=== PATIENT | male | born 1970 | race Caucasian/White ===

== ENCOUNTER 2021-01-03 10:11 | Emergency (ER) | payer MEDICAID, OTHER ==
[~2021-01-03] VITALS: Ht 175.3 cm; Wt 97.1 kg
[2021-01-03 10:48] LABS: Basophils # (auto) 0 10 ^3/uL (0-0.2); Basophils % (auto) 0.7 % (0.0-2.0); Eosinophils # (auto) 0 10 ^3/uL (0-0.8); Hematocrit 43.1 % (41.0-53.0); Hemoglobin 13.9 g/dL (13.5-17.5); Lymphocytes # (auto) 0.6 10 ^3/uL (0.4-5.4); Lymphocytes % (auto) 9.2 % (10.0-50.0); Mean Corpuscular Hemoglobin 28.1 pg (28.0-32.0); Mean Corpuscular Hgb Conc. 32.1 g/dL (32.0-36.0); Mean Corpuscular Volume 87.5 fL (80.0-100.0); Monocytes # (auto) 0.3 10 ^3/uL (0-1.3); Neutrophils # (auto) 5.7 10 ^3/uL (1.6-8.6); Neutrophils % (auto) 86.1 % (37.0-80.0); Red Blood Cells 4.93 10^6/uL (4.5-5.90); White Blood Cell 6.6 10^3/uL (4.4-10.8)
[2021-01-03 11:05] LABS: Albumin 3.7 g/dL (3.4-5.0); Anion Gap 14 (5-15); Blood Urea Nitrogen 12 mg/dL (7-18); Calcium 8.4 mg/dL (8.5-10.1); Carbon Dioxide 20 mmol/L (21-32); Chloride 101 mmol/L (98-107); Glucose 60 mg/dL (74-106); Magnesium 2.3 mg/dL (1.6-2.6); Potassium 3.8 mmol/L (3.5-5.1); Sodium 135 mmol/L (136-145)
[2021-01-03 11:11] LABS: Alanine Aminotransferase 55 U/L (16-61); Alkaline Phosphatase 86 U/L (45-117); Aspartate Aminotransferase 60 U/L (15-37); BUN/Creatinine Ratio 15.6; GFR African American 138 mL/min; GFR Non-African American 114 mL/min; Total Protein 7.9 g/dL (6.4-8.2)
[2021-01-03] MEDS ORDERED: ASPirin 81 mg TAB PO ONE (12:30)
[2021-01-03 15:54] VITALS: BP 177/100
[2021-01-03] MEDS ORDERED: cloNIDine HCL 0.1 MG TAB PO ONE (16:15)
== END 2021-01-03 19:28 | disposition home or self-care (01) ==
LOC: ER 10:11
DX: R07.89 Other chest pain (principal); F41.9 Anxiety disorder, unspecified
CPT/HCPCS: 36415; 71046; 80053; 83735; 84484; 85025; 93005

== ENCOUNTER 2021-08-02 08:23 | Emergency (ER) | payer MEDICAID ==
[~2021-08-02] VITALS: Ht 175.3 cm; Wt 95.3 kg
[2021-08-02 09:39] VITALS: BP 142/106
[2021-08-02] MEDS ORDERED: IBUP800T27 PO (09:50)
== END 2021-08-02 10:01 | disposition home or self-care (01) ==
LOC: ER 08:23
DX: S83.91XA Sprain of unspecified site of right knee, initial encounter (principal); Z79.1 Long term (current) use of non-steroidal anti-inflammatories (NSAID); X50.1XXA Overexertion from prolonged static or awkward postures, initial encounter; Y93.89 Activity, other specified; Y92.89 Other specified places as the place of occurrence of the external cause; Y99.8 Other external cause status
CPT/HCPCS: 29505; 73562